=== PATIENT | male | born 1965 | race Caucasian/White ===

== ENCOUNTER → 2016-12-01 | Day surgery (SDC) | payer OTHER ==
[~2016-12-01] VITALS: Ht 185.4 cm; Wt 136.1 kg
[~2016-12-01] MED LIST: ATORVASTATIN CA10 MG PO; GLIPIZIDE ER2.5 M1 PO; LISINOPRIL10 MG PO; METFORMIN1000 MG PO; MOTRIN 600 MG600 MG PO; PERCOCET 325 MG1 TA2 PO
--- NOTE | 2016-12-01 13:52 | Operative Report ---
Operative/Inv Procedure Report Surgery Date: 12/01/16 Name of Procedure: ultrasound and fluoroscopic guided Right axillary portacath placement. Pre-Operative Diagnosis: metastatic colon cancer Post-Operative Diagnosis: same Estimated Blood Loss: scant Surgeon/Repair Welder: SAGE HERRERA,MATTHIEU Izquierdo Anesthesia: local monitored anesthesi Implants: power port Operative/Procedure Note Note: Patient brought to OR and laid supine. sedation obtained. right chest and neck prepped and draped. The axillary vein was visulalized with ultrasound. Imaging was difficult due to patient's obesity. The vein was percutaneously acessed and wire placed. Confirmation of wire passage to right atrium was performed with fluoroscopy. the skin was anesthetized with local anesthesia and skin incision made around the wire. an inferiorly based pocket was created bluntly. the port was placed and catheter measured with fluoroscopy. It was trimmed to 22cm. The dilator was placed under fluoro and catheter inserted. the sheath was removed. Final fluoroscopic images show placement at SCV/atrial junction. the port was flushed with concentrated heparin. It was secured to deep subcutaneous tissues with 0 vicryl. The incision closed in layers of vicryl. Sterile dressing applied. cxr pending. CC: HYACINTH HERRERA,LEXUS Yoo
--- NOTE | 2016-12-01 14:06 | RADIOLOGY REPORT ---
EXAMINATION: XR PORTABLE CHEST CLINICAL INFORMATION: Status post port placement. Rule out pneumothorax. COMPARISON: CT from 11/02/2016 TECHNIQUE: Portable frontal view of the chest was obtained. FINDINGS: Right chest wall port in place terminating over the lower SVC. The lungs are well expanded. No consolidation, edema, or effusion. No pneumothorax. The cardiomediastinal silhouette is within normal limits. No acute osseous abnormality. IMPRESSION: Right chest wall port in place. No pneumothorax.
--- NOTE | 2016-12-02 16:29 | RADIOLOGY REPORT ---
EXAMINATION:\H\ \N\XR CHEST CLINICAL INFORMATION: Port-A-Cath COMPARISON: PET CT 11/21/2016 TECHNIQUE: Frontal view of the chest was obtained. FLUOROSCOPY TIME: 0.7 minutes DOSE AREA PRODUCT: 0.438 mGy-m2 FINDINGS: 3 fluoroscopic spot images were obtained. The images were not labeled with respect to sidedness. Initial image demonstrates a wire in the subclavian vein. Subsequently, Port-A-Cath is seen in place with tip near the cavoatrial junction. The films are not technically adequate to assess for pneumothorax. IMPRESSION: Intraprocedural fluoroscopy provided placement of a right subclavian Port-A-Cath.
== END ==
LOC: STS 04:23
DX: C78.7 Secondary malignant neoplasm of liver and intrahepatic bile duct (principal); E11.9 Type 2 diabetes mellitus without complications; Z79.84 Long term (current) use of oral hypoglycemic drugs; E78.5 Hyperlipidemia, unspecified; I10 Essential (primary) hypertension
CPT/HCPCS: 36415; C1788; J0690; J1644; J2250